=== PATIENT | male | born 1990 | race Caucasian/White ===

== ENCOUNTER 2023-03-07 22:32 | Emergency (ER) | payer OTHER ==
[~2023-03-07] VITALS: Ht 167.6 cm; Wt 86.2 kg
[2023-03-07 22:39] VITALS: BP 152/97; PULSE 88; RESP 16; TEMP 97.3; O2SAT 98
[2023-03-08] MEDS ORDERED: IBUP-2213 PO (14:00)
== END 2023-03-08 02:47 | disposition left against medical advice (07) ==
LOC: MED 22:32
DX: M79.602 Pain in left arm (principal); Z53.21 Procedure and treatment not carried out due to patient leaving prior to being seen by health care provider; V89.2XXA Person injured in unspecified motor-vehicle accident, traffic, initial encounter; Y93.89 Activity, other specified; Y92.89 Other specified places as the place of occurrence of the external cause; Y99.8 Other external cause status
CPT/HCPCS: 99281

== ENCOUNTER 2023-03-08 13:29 | Emergency (ER) | payer OTHER ==
[~2023-03-08] VITALS: Ht 172.7 cm; Wt 81.6 kg
[2023-03-08 13:33] VITALS: BP 150/93; PULSE 79; RESP 17; TEMP 97.4; O2SAT 98
[2023-03-08] MEDS ORDERED: IBUP-2213 PO (14:00)
== END 2023-03-08 14:11 | disposition home or self-care (01) ==
LOC: MED 13:29
DX: S50.11XA Contusion of right forearm, initial encounter (principal); M54.50 Low back pain, unspecified; Z79.899 Other long term (current) drug therapy; V89.2XXA Person injured in unspecified motor-vehicle accident, traffic, initial encounter; Y93.89 Activity, other specified; Y92.89 Other specified places as the place of occurrence of the external cause; Y99.8 Other external cause status
CPT/HCPCS: 99282